=== PATIENT | female | born 1985 | race Caucasian/White ===

== ENCOUNTER 2017-01-29 17:49 | Emergency (ER) | payer BC ==
[2017-01-29 18:51] LABS: Bilirubin Negative (Negative); Blood, Urine Negative (Negative); Glucose, Urine (Dipstick) Negative (Negative); Ketone, Urine Negative (Negative); Nitrite Negative (Negative); Protein, Urine (Dipstick) Negative (Neg-Trace); Urobilinogen 0.2 mg/dL (0.2-1.0)
[2017-01-29 18:58] LABS: #Eosinphils 0.1 thou/uL (0.0-0.7); #Monocytes 0.4 thou/uL (0.11-0.59); #Neutrophils 3.8 thou/uL (1.40-6.50); %Basophils 0.7 % (0.0-1.0); %Eosinophils 2.1 % (0.0-10.0); %Lymphocytes 31.7 % (21.0-51.0); %Monocytes 5.6 % (0.0-10.0); Hematocrit 43.8 % (36.0-47.0); Mean Platelet Volume 7.4 fL (7.4-10.4); Red Blood Cell (RBC) Count 4.87 mill/uL (4.20-5.40); White Blood Cell (WBC) Count 6.3 thou/uL (4.8-10.8)
[2017-01-29 19:24] LABS: ALT (SGPT) 17 U/L (8-55); AST (SGOT) 16 U/L (5-34); Alkaline Phosphatase 79 U/L (40-150); Anion Gap 10 mmol/L (10-20); BUN (Urea Nitrogen) 15 mg/dL (7.0-18.7); Bilirubin, Total 0.2 mg/dL (0.2-1.2); Calc. Creatinine Clearance 0 mL/min (70-130); Calcium 9.7 mg/dL (7.8-10.44); Carbon Dioxide 26 mmol/L (22-29); Chloride 106 mmol/L (98-107); Estimated GFR-MDRD 84; Globulin 3.1 g/dL (2.4-3.5); Lipase 36 U/L (8-78); Protein, Total 7.4 g/dL (6.0-8.3)
== END 2017-01-29 20:13 | disposition home or self-care (01) ==
LOC: ERS 17:49
DX: N92.6 Irregular menstruation, unspecified (principal); R10.32 Left lower quadrant pain; J45.909 Unspecified asthma, uncomplicated; F41.9 Anxiety disorder, unspecified; F31.9 Bipolar disorder, unspecified; F17.210 Nicotine dependence, cigarettes, uncomplicated; Z79.899 Other long term (current) drug therapy
CPT/HCPCS: 36415; 80053; 81003; 81025; 83690; 84703; 85025; 87480; 87491; 87510; 87591; 87660; 94760; 99284

== ENCOUNTER 2017-03-11 03:32 | Emergency (ER) | payer BC ==
[2017-03-11] MEDS ORDERED: Proparacaine 0.5% Opth 15 ML BOT ONE (04:24)
[2017-03-11] MEDS ORDERED: Fluorescein Opthalmic Strip ONE (04:24)
== END 2017-03-11 05:45 | disposition home or self-care (01) ==
LOC: ERS 03:32
DX: H57.12 Ocular pain, left eye (principal); J45.909 Unspecified asthma, uncomplicated; F41.9 Anxiety disorder, unspecified; F31.9 Bipolar disorder, unspecified; F17.210 Nicotine dependence, cigarettes, uncomplicated; Z79.899 Other long term (current) drug therapy
CPT/HCPCS: 99283

== ENCOUNTER 2017-03-14 16:54 | Emergency (ER) | payer BC | END 2017-03-14 17:40 | disposition home or self-care (01) | LOC: ERS 16:54 | DX: S39.012A Strain of muscle, fascia and tendon of lower back, initial encounter (principal); J45.909 Unspecified asthma, uncomplicated; F41.9 Anxiety disorder, unspecified; F31.9 Bipolar disorder, unspecified; Z71.6 Tobacco abuse counseling; F17.210 Nicotine dependence, cigarettes, uncomplicated; V49.9XXA Car occupant (driver) (passenger) injured in unspecified traffic accident, initial encounter | CPT/HCPCS: 99406 ==

== ENCOUNTER 2017-04-07 05:07 | Emergency (ER) | payer BC ==
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
== END 2017-04-07 06:48 | disposition home or self-care (01) ==
LOC: ERS 05:07
DX: S06.0X0A Concussion without loss of consciousness, initial encounter (principal); S00.83XA Contusion of other part of head, initial encounter; F41.9 Anxiety disorder, unspecified; F31.9 Bipolar disorder, unspecified; F17.210 Nicotine dependence, cigarettes, uncomplicated; J45.909 Unspecified asthma, uncomplicated; Z79.899 Other long term (current) drug therapy; Y04.0XXA Assault by unarmed brawl or fight, initial encounter
CPT/HCPCS: 70450

== ENCOUNTER 2017-04-09 07:53 | Emergency (ER) | payer BC ==
[2017-04-09 09:36] LABS: Bilirubin Negative (Negative); Blood, Urine Negative (Negative); Clarity CLOUDY (Clear); Glucose, Urine (Dipstick) Negative (Negative); Leukocyte Negative (Negative); Nitrite Negative (Negative); Protein, Urine (Dipstick) Negative (Neg-Trace); Specific Gravity, Urine 1.024 (1.002-1.036); Urobilinogen 0.2 mg/dL (0.2-1.0); pH, Urine 6.5 (5.0-9.0)
[2017-04-09 09:37] LABS: Pregnancy Test - Urine (BHCG) Negative (Negative); Pregu Control Background? CLEAR/WHITE (CLR/WHITE); Pregu Control Bar Appear? YES (CONTROL BAR); Specific Gravity 1.024 (1.002-1.036)
== END 2017-04-09 09:57 | disposition home or self-care (01) ==
LOC: ERS 07:53
DX: S06.0X0A Concussion without loss of consciousness, initial encounter (principal); J45.909 Unspecified asthma, uncomplicated; F41.9 Anxiety disorder, unspecified; F31.9 Bipolar disorder, unspecified; F17.210 Nicotine dependence, cigarettes, uncomplicated; Z79.899 Other long term (current) drug therapy; Y09 Assault by unspecified means
CPT/HCPCS: 81003; 81025; 99284

== ENCOUNTER 2017-04-28 03:23 | Emergency (ER) | payer BC | END 2017-04-28 05:59 | disposition home or self-care (01) | LOC: ERS 03:23 | DX: F43.9 Reaction to severe stress, unspecified (principal); F15.23 Other stimulant dependence with withdrawal; J45.909 Unspecified asthma, uncomplicated; F41.9 Anxiety disorder, unspecified; F31.9 Bipolar disorder, unspecified; F17.210 Nicotine dependence, cigarettes, uncomplicated; Z79.899 Other long term (current) drug therapy | CPT/HCPCS: 87081; 87430; 99406 ==

== ENCOUNTER 2017-05-06 17:48 | Emergency (ER) | payer BC | END 2017-05-06 19:52 | disposition home or self-care (01) | LOC: ERS 17:48 | DX: L02.31 Cutaneous abscess of buttock (principal); J45.909 Unspecified asthma, uncomplicated; F41.9 Anxiety disorder, unspecified; F31.9 Bipolar disorder, unspecified; F17.210 Nicotine dependence, cigarettes, uncomplicated | CPT/HCPCS: 99282 ==

== ENCOUNTER 2017-11-23 21:33 | Emergency (ER) | payer BC, SELFPAY ==
[2017-11-23] MEDS ORDERED: Albuterol Sulfate 2.5 mg/0.5 ml Neb ONE (21:57)
[2017-11-23] MEDS ORDERED: Ondansetron ODT 4 MG TAB ONE (21:59)
--- NOTE | 2017-11-23 22:15 | RAD ---
CHEST TWO VIEWS: 11/23/17 HISTORY: Dyspnea. FINDINGS: Cardiac silhouette and pulmonary vasculature are unremarkable. Mediastinum is midline. No confluent a ir space consolidation, pneumothorax, or pleural fluid. IMPRESSION: No active cardiopulmonary abnormalities are demonstrated. POS: [facility]
[2017-11-23 22:22] LABS: Pregnancy Test - Urine (BHCG) Negative (Negative); Pregu Control Background? CLEAR/WHITE (CLR/WHITE); Pregu Control Bar Appear? YES (CONTROL BAR)
== END 2017-11-23 22:50 | disposition home or self-care (01) ==
LOC: SCSER 21:33
DX: R05 Cough (principal); J45.909 Unspecified asthma, uncomplicated; F41.9 Anxiety disorder, unspecified; F31.9 Bipolar disorder, unspecified; F17.210 Nicotine dependence, cigarettes, uncomplicated
CPT/HCPCS: 71046; 81025; 94640; J7611; Q0162

== ENCOUNTER 2018-10-23 13:43 | Emergency (ER) | payer SELFPAY | END 2018-10-23 14:08 | disposition home or self-care (01) | LOC: SCSER 13:43 | DX: R05 Cough (principal); Z71.6 Tobacco abuse counseling; F31.9 Bipolar disorder, unspecified; F41.9 Anxiety disorder, unspecified; F17.210 Nicotine dependence, cigarettes, uncomplicated | CPT/HCPCS: 99281 ==

== ENCOUNTER 2019-05-27 12:53 | Emergency (ER) | payer SELFPAY | END 2019-05-27 15:15 | disposition home or self-care (01) | LOC: ERS 12:53 | DX: J11.1 Influenza due to unidentified influenza virus with other respiratory manifestations (principal); J45.909 Unspecified asthma, uncomplicated; F41.9 Anxiety disorder, unspecified; F31.9 Bipolar disorder, unspecified; F17.210 Nicotine dependence, cigarettes, uncomplicated | CPT/HCPCS: 87081; 87430; 87804; 94640; J7620 ==

== ENCOUNTER 2019-10-06 20:43 | Emergency (ER) | payer OTHER, SELFPAY ==
[2019-10-07 15:44] LABS: SARS-CoV-2 MS2 Positive; SARS-CoV-2 N Gene Negative; SARS-CoV-2 S Gene Negative; SARS-CoV-2 orf1ab Negative
== END 2019-10-06 22:06 | disposition home or self-care (01) ==
LOC: ERS 20:43
DX: J06.9 Acute upper respiratory infection, unspecified (principal); Z20.828 Contact with and (suspected) exposure to other viral communicable diseases; F31.9 Bipolar disorder, unspecified; F17.210 Nicotine dependence, cigarettes, uncomplicated
CPT/HCPCS: 87635; 99283; U0003

== ENCOUNTER 2019-11-03 12:29 | Emergency (ER) | payer SELFPAY ==
[2019-11-03] MEDS ORDERED: Fluorescein Opthalmic Strip ONE (14:30)
[2019-11-03] MEDS ORDERED: Proparacaine 0.5% Opth 15 ML BOT ONE (14:30)
== END 2019-11-03 15:30 | disposition home or self-care (01) ==
LOC: ERS 12:29
DX: H20.9 Unspecified iridocyclitis (principal); F31.9 Bipolar disorder, unspecified; F41.9 Anxiety disorder, unspecified; J45.909 Unspecified asthma, uncomplicated; F17.210 Nicotine dependence, cigarettes, uncomplicated
CPT/HCPCS: 99283

== ENCOUNTER 2020-02-26 13:57 | Emergency (ER) | payer SELFPAY | END 2020-02-26 15:47 | disposition home or self-care (01) | LOC: ERS 13:57 | DX: S30.861A Insect bite (nonvenomous) of abdominal wall, initial encounter (principal); J45.909 Unspecified asthma, uncomplicated; F41.9 Anxiety disorder, unspecified; F31.9 Bipolar disorder, unspecified; F17.210 Nicotine dependence, cigarettes, uncomplicated; W57.XXXA Bitten or stung by nonvenomous insect and other nonvenomous arthropods, initial encounter | CPT/HCPCS: 99281 ==